=== PATIENT | female | born 1980 | race American Indian/Alaskan Native ===

== ENCOUNTER 2021-10-09 18:59 | Emergency (ER) | payer SELFPAY ==
[2021-10-09 20:35] VITALS: BP 119/71
--- NOTE | 2021-10-09 22:00 | XRay Report ---
LEFT HUMERUS 2 VIEW(S) INDICATION / CLINICAL INFORMATION: trauma COMPARISON: None available. FINDINGS: BONES / JOINT(S): No acute fracture or subluxation. No significant arthritis. SOFT TISSUES: No significant abnormality. ADDITIONAL FINDINGS: None. Signer Name: Lobo Michaels DO Signed: 10/09/2021 9:56 PM Workstation Name: [id number]
--- NOTE | 2021-10-09 22:00 | XRay Report ---
LEFT RIBS 3 VIEWS INDICATION / CLINICAL INFORMATION: trauma. COMPARISON: None available. FINDINGS: RIBS: No acute, displaced fracture or other acute abnormality. LUNGS: No acute findings. No pneumothorax. Signer Name: Lobo Michaels DO Signed: 10/09/2021 9:56 PM Workstation Name: [id number]
--- NOTE | 2021-10-09 22:00 | XRay Report ---
LEFT FOREARM 2 VIEW(S) INDICATION / CLINICAL INFORMATION: trauma COMPARISON: None available. FINDINGS: BONES / JOINT(S): No acute fracture or subluxation. No significant arthritis. SOFT TISSUES: No significant abnormality. ADDITIONAL FINDINGS: None. Signer Name: Lobo Michaels DO Signed: 10/09/2021 9:56 PM Workstation Name: [id number]
--- NOTE | 2021-10-10 07:24 | Emergency Department Report ---
ED Fall HPI - General Chief Complaint: Extremity Injury, Upper Stated Complaint: LEFT ARM PAIN Time Seen by Provider: 10/10/21 07:20 Source: patient Mode of arrival: Ambulatory - History of Present Illness Initial Comments: 40 yom with no pmh presents to ed for evaluation of left rib and arm pain. He states that he fell from a 3 story platform about 3 weeks ago and has been vivar ving pain to areas since then. He states that he has been unable to lift his left arm. MD Complaint: fall -: week(s) (3) Fall From: from height (distance) (3 story platform) When Fall Occurred: # days [employer] (3 weeks ago) Fall Witnessed: yes, by bystander Place Fall Occurred: work Loss of Consciousness: none Prolonged Down Time?: no Symptoms Prior to Fall: none Location: other (left rib area) Location - Extremities: Left: Shoulder, Arm Severity: severe Severity scale (0 -10): 10 Quality: aching Associated Symptoms: denies: headache, neck pain, numbness, weakness, shortness of breath, abdominal pain - Related Data Previous Rx's Medication Instructions Recorded Last Taken Type Lidocaine [Lidoderm] 1 each TP DAILY #10 patch 10/10/21 Unknown Rx Naproxen 500 mg PO BID #14 tab 10/10/21 Unknown Rx methylPREDNISolone [Medrol 4MG 4 mg PO DAILY #1 pack 10/10/21 Unknown Rx DOSEPAK (21 tabs)] Allergies Allergy/AdvReac Type Severity Reaction Status Date / Time No Known Allergies Allergy Unverified 10/09/21 20:35 ED Review of Systems ROS: Stated complaint: LEFT ARM PAIN Other details as noted in HPI Comment: All other systems reviewed and negative Constitutional: denies: chills, fever Respiratory: denies: cough, shortness of breath Cardiovascular: denies: chest pain, palpitations, dyspnea on exertion Gastrointestinal: denies: abdominal pain, nausea, vomiting Genitourinary: denies: urgency, dysuria, frequency, hematuria Musculoskeletal: denies: back pain Neurological: denies: headache, weakness ED Past Medical Hx - Medications Home Medications: Home Medications Medication Instructions Recorded Confirmed Last Taken Type Lidocaine [Lidoderm] 1 each TP DAILY #10 patch 10/10/21 Unknown Rx Naproxen 500 mg PO BID #14 tab 10/10/21 Unknown Rx methylPREDNISolone [Medrol 4MG 4 mg PO DAILY #1 pack 10/10/21 Unknown Rx DOSEPAK (21 tabs)] ED Physical Exam - General Limitations: No Limitations General appearance: alert, in no apparent distress - Head Head exam: Present: atraumatic, normocephalic - Eye Eye exam: Present: normal appearance. Absent: conjunctival injection - Neck Neck exam: Present: normal inspection, full ROM. Absent: tenderness, lymphadenopathy - Cardiovascular Cardiovascular Exam: Present: regular rate - Expanded Cardiovascular Exam Expanded 1 - tenderness to palpation. - GI/Abdominal GI/Abdominal exam: Present: soft. Absent: distended - Expanded Upper Extremity Exam Left Shoulder Exam: Present: normal inspection, tenderness. Absent: full ROM, swelling, ecchymosis, deformity, crepidus, dislocation, erythema, tenderness over AC joint Upper Arm exam: Present: normal inspection, tenderness. Absent: swelling Elbow exam: Present: normal inspection, tenderness. Absent: swelling Forearm Wrist exam: Present: normal inspection, tenderness. Absent: swelling Vascular: Present: normal capillary refill. Absent: vascular compromise, Pallo, pulse deficit radial art - Back Exam Back exam: Present: normal inspection. Absent: vertebral tenderness - Neurological Exam Neurological exam: Present: alert, oriented X3 - Psychiatric Psychiatric exam: Present: normal affect, normal mood - Skin Skin exam: Present: warm, dry, intact, normal color ED Course Vital Signs 10/09/21 20:32 Temperature 98.6 F Pulse Rate 97 H Respiratory 20 Rate Blood Pressure 119/71 [Left] O2 Sat by Pulse 100 Oximetry ED Medical Decision Making - Radiology Data Radiology results: report reviewed, image reviewed left rib xray with pa chest: FINDINGS: RIBS: No acute, displaced fracture or other acute abnormality. LUNGS: No acute findings. No pneumothorax. left humerus xray: FINDINGS: BONES / JOINT(S): No acute fracture or subluxation. No significant arthritis. SOFT TISSUES: No significant abnormality. ADDITIONAL FINDINGS: None. Left forearm xray: FINDINGS: BONES / JOINT(S): No acute fracture or subluxation. No significant arthritis. SOFT TISSUES: No significant abnormality. ADDITIONAL FINDINGS: None. - Medical Decision Making 40 yom with no pmh presents to ed for evaluation of left rib and arm pain. He states that he fell from a 3 story platform about 3 weeks ago and has been having pain to areas since then. He states that he has been unable to lift his left arm. No gross abnormalities noted on exam, and rib, humerus, and forearm xrays without any acute abnormalities noted. Patient will be treated with antiinflammatories and steroid pack. He is advised to take medications as prescribed and follow up with pcp if no improvement or worsening symptoms. He verbalized understanding of and agreement with plan of care. Critical care attestation.: If time is entered above; I have spent that time in minutes in the direct care of this critically ill patient, excluding procedure time. ED Disposition Clinical Impression: Rib pain on left side Fall Qualifiers: Encounter type: initial encounter Qualified Code(s): W19.XXXA - Unspecified fall, initial encounter Left shoulder pain Qualifiers: Chronicity: acute Qualified Code(s): M25.512 - Pain in left shoulder Disposition: 01 HOME / SELF CARE / HOMELESS Is pt being admited?: No Does the pt Need Aspirin: No Condition: Stable Instructions: Shoulder Pain, [id number], Musculoskeletal Pain, Rib Contusion, Joint Pain, [id number] Additional Instructions: Take medications as prescribed. Follow-up with primary care provider or orthopedics if no improvement or worsening symptoms. Return to the emergency department as needed. Prescriptions: Lidocaine [Lidoderm] 1 each TP DAILY #10 patch methylPREDNISolone [Medrol 4MG DOSEPAK (21 tabs)] 4 mg PO DAILY #1 pack Naproxen 500 mg PO BID #14 tab Referrals: CATIE JC MD [Staff Physician] - 3-5 Days ROXY LOPEZ MD [Staff Physician] - 3-5 Days Forms: Work/School Release Form(ED) Time of Disposition: 07:28
== END 2021-10-10 07:54 | disposition home or self-care (01) ==
LOC: ED 18:59
DX: R07.81 Pleurodynia (principal); M25.512 Pain in left shoulder; W19.XXXA Unspecified fall, initial encounter; Y93.89 Activity, other specified; Y92.89 Other specified places as the place of occurrence of the external cause; Y99.8 Other external cause status
CPT/HCPCS: 99283